=== PATIENT | female | born 1960 | race Caucasian/White ===

== ENCOUNTER → 2019-02-11 09:10 | Day surgery (SDC) | payer OTHER ==
[~2019-02-11 09:10] MED LIST: Buffered Lidocaine 1% SYRIN* 1 ML/SYRINGE INTRADERM ONE; Dexamethasone IV* 4 MG/ML 1 ML (4 MG) IV SLOW PU ONE; Dexamethasone IV* 4 MG/ML 1 ML (4 MG) ONE; Famotidine IV* 10 MG/ML 2 ML (20 mg) IV ONE; Famotidine IV* 10 MG/ML 2 ML (20 mg) ONE; Ibuprofen TAB* 600 MG PO PRN; Lactated Ringers 1000 ML Bag* 1,000 ML IV SCH; Lidocaine 2% PF * 5 ML VIAL ONE; Midazolam* 1 MG/ML 5 ML VIAL (5 MG) ONE; Ondansetron INJ* 2 MG/ML VIAL ONE; Propofol* 10 MG/ML 20 ML BTL ONE; fentaNYL* 50 MCG/ML 2 ML VIAL (100 MCG VIAL) ONE; oxyCODONE/Acetamin 5/325 MG* TAB PO PRN
[2019-02-11 10:43] LABS: Hematocrit 41 % (33-41); Mean Corpuscular HGB Conc 34 g/dL (31-36); Mean Corpuscular Hemoglobin 28 pg (27-31); Mean Corpuscular Volume 80 fL (80-97); Mean Platelet Volume 8.5 fL (7.4-10.4); Platelet Count 279 10^3/uL (150-450); Red Blood Count 5.11 10^6 /uL (3.70-4.87); Red Cell Distribution Width 14 % (10.5-15); White Blood Count 6.2 10^3/uL (3.5-10.8)
[2019-02-11 14:43] VITALS: BP 146/93
--- NOTE | 2019-02-11 22:15 | OP ---
CC: [facility]. BRIEF OPERATIVE REPORT: DATE OF OPERATION: 02/11/19 DATE OF : 64 SURGEON: Paola Cuenca MD ANESTHESIOLOGIST: Dr. Helms. ANESTHESIA: General endotracheal anesthesia. PRE-OP DIAGNOSIS: Postmenopausal bleeding, complex endometrial hyperplasia with atypia on office biopsy. POST-OP DIAGNOSIS: Postmenopausal bleeding, complex endometrial hyperplasia with on office biopsy, pathology pending. OPERATIVE PROCEDURE: Dilation hysteroscopy, MyoSure polypectomy, curettage. ESTIMATED BLOOD LOSS: Minimal, less than 20 cc. SPECIMENS: Endometrial curetting. FLUIDS: Per Anesthesia. DRAINS: None. FINDINGS: Midline cervix with a visible polyp at the external os. Multiple polyps within the endometrium, diffusely thickened endometrium throughout. Uterus sounds to 10. No adnexal masses palpated. COMPLICATIONS: None. COUNTS: Sponge count correct x2. The patient tolerated the procedure well and was brought to the recovery room awake and in stable condition. DESCRIPTION OF PROCEDURE: The patient was brought to the operating room. When general endotracheal anesthesia was found to be adequate, the patient was prepped and draped in the usual sterile fashion in the dorsal lithotomy position. Time-out was performed. Exam under anesthesia was performed. A weighted speculum was placed in the vagina. The anterior lip of the cervix was grasped with a single- tooth tenaculum. A polypoid tissue was visible at the external os. The cervix was gently and easily dilated with the graduated Rivas dilators. The hysteroscope was introduced, multiple polyps and thickened endometrium was noted throughout the uterus. The uterus had sounded to 10. The MyoSure polypectomy was performed and then curettage was performed, a large amount of tissue was retrieved and was sent to Pathology. The single-tooth tenaculum was removed from the anterior lip of the cervix. Excellent hemostasis was noted. All instruments removed from the vagina and the patient was brought to the recovery room awake and in stable condition. [id number]/[facility] #: [id number] HUS[place]IN
== END | disposition home or self-care (01) ==
LOC: OR 09:10
PROVIDERS: ATTEND Obstetrics & Gynecology
DX: C54.1 Malignant neoplasm of endometrium (principal); E11.9 Type 2 diabetes mellitus without complications; I10 Essential (primary) hypertension; E78.5 Hyperlipidemia, unspecified; J45.909 Unspecified asthma, uncomplicated
CPT/HCPCS: 36415; 85027; 86850; 86900; 86901; 88305; 88341; 88342; J1100; J2250; J2405; J2704; J3010